=== PATIENT | female | born 1995 | race Caucasian/White ===

== ENCOUNTER 2021-01-25 00:54 | Emergency (ER) | payer BC ==
[~2021-01-25] VITALS: Ht 152.4 cm; Wt 54.5 kg
[2021-01-25 01:32] LABS: BASO # 0.1 K/mm3 (0.0-0.2); BASO % 0.3 % (0.0-2.0); EOS % 0.1 % (0-4.0); GRAN # 14.5 K/mm3 (1.4-6.5); LYMPH # 1.8 K/mm3 (1.2-3.4); LYMPH % 9.8 % (20.0-51.0); MEAN CELL VOLUME 85 fl (80.0-100.0); MEAN CORPUSCULAR HEMOGLOBIN 30 pg (27.0-31.0); MEAN CORPUSCULAR HGB CONC 35 g/dl (33.0-37.0); MEAN PLATELET VOLUME 10.7 fl (7.4-10.4); MONO # 1.5 K/mm3 (0.1-0.6); MONO % 8.4 % (1.7-9.3); PLATELET COUNT 216 K/mm3 (130-400); RED BLOOD COUNT 4.06 M/mm3 (4.10-5.30)
[2021-01-25 01:33] LABS: HEMATOCRIT 34.6 % (37.0-47.0)
[2021-01-25 01:50] LABS: BILIRUBIN,TOTAL 0.2 mg/dL (0.2-1.2); CALCIUM 9.5 mg/dL (8.4-10.2); CREATININE, serum 0.61 mg/dL (0.57-1.11); POTASSIUM 3.8 mmol/L (3.5-4.5); TOTAL PROTEIN 7.4 gm/dL (6.2-8.1)
[2021-01-25 01:53] VITALS: TEMP 97.2
[2021-01-25] MEDS ORDERED: PHENERGAN 25 TA25 MG PO (03:11)
[2021-01-25 03:13] VITALS: BP 124/64; PULSE 77
== END 2021-01-25 03:20 | disposition home or self-care (01) ==
LOC: COL.ER 00:54
PROVIDERS: Emergency Medicine Emergency Medical Services
DX: O21.0 Mild hyperemesis gravidarum (principal); Z3A.08 8 weeks gestation of pregnancy
CPT/HCPCS: J2550; J7030